=== PATIENT | female | born 1965 ===

== ENCOUNTER 2017-01-11 16:41 | Emergency (ER) | payer MEDICAID ==
[2017-01-11 16:41] VITALS: BMI 25.6
[2017-01-11 16:47] VITALS: RESP 18
--- NOTE | 2017-01-11 17:39 | C.PDOC ---
History Of Present Illness 51 year old female presents to the ED with complaints of vaginal bleeding for ten days and mild abdominal discomfort. Patient states she has been going through two pads per day. She notes she stopped having her period, her last period was April 2016. Patient denies fever, dysuria, nausea, vomiting, chest pain, or shortness of breath. Time Seen by Provider: 01/11/17 16:58 Chief Complaint (Nursing): Female Genitourinary History Per: Patient History/Exam Limitations: no limitations Onset/Duration Of Symptoms: Days (10 days ) Current Symptoms Are (Timing): Still Present Quality Of Discomfort: Other (a) Associated Symptoms: denies: Fever, Chills, Nausea, Vomiting, Diarrhea Recent travel outside of the [place]: No Abnormal Vaginal Bleeding: Yes Last Menstral Period: April 2016 Past Medical History Reviewed: Historical Data, Nursing Documentation, Vital Signs Vital Signs: Last Vital Signs Temp 97.9 F 01/11/17 16:44 Pulse 60 01/11/17 16:44 Resp 18 01/11/17 16:44 BP 108/65 01/11/17 16:44 Pulse Ox 97 01/11/17 18:13 - Medical History PMH: Denies: Chronic Kidney Disease Family History: States: Other Other Family History: Non-contributory. - Social History Hx Alcohol Use: No Hx Substance Use: No - Immunization History Hx Tetanus Toxoid Vaccination: Yes Hx Influenza Vaccination: No Hx Pneumococcal Vaccination: No Review Of Systems Constitutional: Negative for: Fever, Chills Cardiovascular: Negative for: Chest Pain Respiratory: Negative for: Shortness of Breath Gastrointestinal: Negative for: Nausea, Vomiting, Abdominal Pain, Diarrhea Genitourinary: Positive for: Vaginal Bleeding Physical Exam - Physical Exam Appears: Non-toxic, No Acute Distress Skin: Warm, Dry Head: Atraumatic Eye(s): bilateral: Normal Inspection Oral Mucosa: Moist Neck: Supple Chest: Symmetrical Cardiovascular: Rhythm Regular Respiratory: Normal Breath Sounds, No Rales, No Rhonchi, No Wheezing Gastrointestinal/Abdominal: Soft, Tenderness (lower abdominal tenderness ), No Distention, No Guarding, No Rebound Pelvic: Vaginal Bleeding (No blood noted ), Other (Cervix appears normal ) Extremity: Normal ROM, No Tenderness Neurological/Psych: Oriented x3, Normal Speech, Normal Cognition, Normal Motor, Normal Sensation ED Course And Treatment - Laboratory Results Result Diagrams: 01/11/17 17:39 01/11/17 17:39 O2 Sat by Pulse Oximetry: 97 (room air ) - CT Scan/US US Pelvis Complete, Transabdominal Other Rad Studies (CT/US): Read By Radiologist, Radiology Report Reviewed CT/US Interpretation: FINDINGS: Uterus/cervix: Retroverted uterus. Uterus measures 7.7 x 3.9 x 5.3 cm in size. No myometrial. mass. Endometrium: 0.8 cm in thickness. Right ovary: 4.2 x 2.5 x 3.2 cm in size. 2.8 x 2.1 x 1.9 cm anechoic lesion. Normal flow. Left ovary: 2.8 x 1.4 x 2.6 cm in size. No mass. Normal flow. Free fluid: No significant free fluid. Bladder: Unremarkable as visualized. IMPRESSION: 1. Thickened endometrium, abnormal in postmenopausal patient. Endometrial carcinoma is. diagnosis of exclusion. Clinical correlation and follow up are recommended. 2. Probable RIGHT ovarian cyst. Progress Note: UA, transvaginal US, and blood work were ordered. 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 Disposition - Disposition Disposition: HOME/ ROUTINE Disposition Time: 18:26 Condition: STABLE Forms: [facility] (German) - Clinical Impression Clinical Impression: Post-menopausal bleeding - Scribe Statement The provider has reviewed the documentation as recorded by the Scribpaul Krueger All medical record entries made by the Scribe were at my direction and personally dictated by me. I have reviewed the chart and agree that the record accurately reflects my personal performance of the history, physical exam, medical decision making, and the department course for this patient. I have also personally directed, reviewed, and agree with the discharge instructions and disposition.
[2017-01-11 17:47] LABS: BASO % 0.3 % (0.0-2.0); EOS # 0.1 K/uL (0.0-0.7); EOS % 2.4 % (0.0-4.0); HEMATOCRIT 34.2 % (34.0-47.0); LYMPH # 1.1 K/uL (1.0-4.3); LYMPH % 25.8 % (20.0-40.0); MEAN CELL VOLUME 92.8 fL (81.0-99.0); MEAN CORPUSCULAR HEMOGLOBIN 31.3 pg (27.0-31.0); MEAN CORPUSCULAR HGB CONC 33.7 g/dL (33.0-37.0); MEAN PLATELET VOLUME 8.7 fL (7.2-11.7); MONO # 0.4 K/uL (0.0-0.8); MONO % 9.5 % (0.0-10.0); NRBC % 0.1 % (0.0-2.0); RED CELL DISTRIBUTION WIDTH 13.4 % (11.5-14.5); WHITE BLOOD COUNT 4.2 K/uL (4.8-10.8)
[2017-01-11 17:52] LABS: CHLORIDE 107 mmol/L (98-107)
[2017-01-11 17:53] LABS: POTASSIUM 4.3 mmol/L (3.6-5.2); SODIUM 146 mmol/L (132-148)
[2017-01-11 17:55] LABS: ALB/GLOB RATIO 1.7 (1.0-2.1); ALKALINE PHOSPHATASE 71 U/L (38-126); AST/SGOT 16 U/L (14-36); BILIRUBIN,TOTAL 0.5 mg/dL (0.2-1.3); BLOOD UREA NITROGEN 15 mg/dL (7-17); CARBON DIOXIDE 24 mmol/L (22-30); GFR AFRICAN-AMERICAN > 60; TOTAL PROTEIN 6.5 g/dL (6.3-8.3)
[2017-01-11 17:56] LABS: ALT/SGPT 24 U/L (9-52); CALCIUM 8.2 mg/dl (8.6-10.4); GLUCOSE,RANDOM 98 mg/dL (65-105)
[2017-01-11 17:59] LABS: RBC URINE 71 /hpf (0-3); URINE BACTERIA RARE (<OCC); URINE BILIRUBIN NEGATIVE (NEGATIVE); URINE BLOOD 3+ (NEGATIVE); URINE COLOR Yellow (YELLOW); URINE GLUCOSE (UA) NORMAL (Normal); URINE KETONE TRACE mg/dL (NEGATIVE); URINE LEUKOCYTE ESTERASE NEG Leu/uL (Negative); URINE PROTEIN NEGATIVE (NEGATIVE); URINE UROBILINOGEN NORMAL mg/dL (0.2-1.0); WBC URINE 3 /hpf (0-5)
--- NOTE | 2017-01-11 18:05 | US ---
EXAM: US Pelvis Complete, Transabdominal CLINICAL HISTORY: 51 years old, female; Signs and symptoms; Menstruation abnormalities; Postmenopausal bleeding TECHNIQUE: Real-time transabdominal pelvic ultrasound (complete) with image documentation. COMPARISON: No relevant prior studies available. FINDINGS: Uterus/cervix: Retroverted uterus. Uterus measures 7.7 x 3.9 x 5.3 cm in size. No myometrial mass. Endometrium: 0.8 cm in thickness. Right ovary: 4.2 x 2.5 x 3.2 cm in size. 2.8 x 2.1 x 1.9 cm anechoic lesion. Normal flow. Left ovary: 2.8 x 1.4 x 2.6 cm in size. No mass. Normal flow. Free fluid: No significant free fluid. Bladder: Unremarkable as visualized. IMPRESSION: 1. Thickened endometrium, abnormal in postmenopausal patient. Endometrial carcinoma is diagnosis of exclusion. Clinical correlation and follow up are recommended. 2. Probable RIGHT ovarian cyst. EXAM: US Pelvis, Transvaginal CLINICAL HISTORY: 51 years old, female; Signs and symptoms; Menstruation abnormalities; Postmenopausal bleeding TECHNIQUE: Real-time transvaginal pelvic ultrasound (complete) with image documentation. Transvaginal imaging was used for better evaluation of the endometrium and adnexa. COMPARISON: No relevant prior studies available. FINDINGS: Uterus/cervix: Retroverted uterus. Uterus measures 7.7 x 3.9 x 5.3 cm in size. No myometrial mass. Endometrium: 0.8 cm in thickness. Right ovary: 4.2 x 2.5 x 3.2 cm in size. 2.8 x 2.1 x 1.9 cm anechoic lesion. Normal flow. Left ovary: 2.8 x 1.4 x 2.6 cm in size. No mass. Normal flow. Free fluid: No significant free fluid. Bladder: Empty bladder which cannot be evaluated with this probe.
[2017-01-11 18:45] VITALS: BP 130/80; PULSE 54; TEMP 98.2; O2SAT 96
== END 2017-01-11 18:45 | disposition home or self-care (01) ==
LOC: C.ER 16:41
DX: N95.0 Postmenopausal bleeding (principal)

== ENCOUNTER 2017-02-26 07:09 | Day surgery (SDC) | payer MEDICAID ==
[2017-02-26] MEDS ORDERED: Lactated Ringer's 1,000 ML IV ONE ×2 (08:21)
[2017-02-26] MEDS ORDERED: Propofol 10 mg/ml Inj (20 ML) ONE (09:21)
[2017-02-26] MEDS ORDERED: Midazolam 2 MG/2 ML VIAL ONE (09:21)
[2017-02-26] MEDS ORDERED: cefOXitin IV 1 gm in Dextrose 1 GM/50 ML BAG IVPB ONE (09:38)
[2017-02-26] MEDS ORDERED: HYDROmorphone 0.5 mg/0.5 ml ISec IVP PRN (10:28)
[2017-02-26 11:54] VITALS: PULSE 54; RESP 16; TEMP 98; O2SAT 100
[2017-02-26 12:22] VITALS: BP 124/59
--- NOTE | 2017-02-26 12:38 | PCM.SURG1 ---
Surgeon's Initial Post Op Note - Surgeon's Notes Surgeon: Dr Bryan Behavioral Specialist: Renetta Brumfield Type of Anesthesia: General Endo Anesthesia Administered By: KERRI Mcmahon, supervised by Dr Ball Pre-Operative Diagnosis: Perimenopausal bleeding with Endometrial Polyp Operative Findings: Normal sized retroverted uterus, sounded to a deapth of 7cm. Atrophic endometrial cavity at hysteroscopy. No polyps identified. Endometrial and endocervical curretage performed and samples sent for histopathology. IVF Intake- 300mls. EBL - 20mls. Urine output- 50mls Post-Operative Diagnosis: Same as Preop Operation Performed: D and C Hysteroscopy Specimen/Specimens Removed: Endometrial and endocervical curretings. Estimated Blood Loss: EBL {In ML}: 20 Blood Products Given: N/A Post-Op Condition: Good Date of Surgery/Procedure: 02/26/17 Time of Surgery/Procedure: 09:35
--- NOTE | 2017-02-26 19:25 | OP ---
PROCEDURE DATE: 02/26/2017 PREOPERATIVE DIAGNOSES: A 51-year-old female with perimenopausal bleeding and endometrial polyp. POSTOPERATIVE DIAGNOSES: A 51-year-old female with perimenopausal bleeding and endometrial polyp. PROCEDURE DONE: Dilatation and curettage, hysteroscopy performed on 02/26/2017. SURGEON: Otis Bryan MD SENIOR UI WEB DEVELOPER: Laura Brumfield, family practice resident. TYPE OF ANESTHESIA: General endotracheal. ANESTHESIA ADMINISTERED BY: China Berger CRNA, supervised by Dr. Ball. OPERATIVE FINDINGS: Normal-sized retroverted uterus which was sounded to a depth of about 7 cm. There were atrophic endometrial tissue observed at hysteroscope. There were no polyps identified in the intrauterine cavity. Endometrial and endocervical curettage was performed and sample sent for histopathology. IV FLUID INTAKE: 300 mL. ESTIMATED BLOOD LOSS: 20 mL. URINE OUTPUT: 50 mL. COMPLICATIONS: There were no complications. DESCRIPTION OF PROCEDURE: After obtaining informed consent, the patient was sent to the OR with IV running and placed in the supine position on the OR table. After adequate general anesthesia, the patient was repositioned in dorsal lithotomy position using Fahad stirrups. The patient was prepped and draped in the usual sterile fashion. The urinary bladder was drained with a straight cath with output of about 50 mL of clear urine. Posterior wall of the vagina was depressed with a weighted speculum and the anterior wall elevated with an L-shaped retractor to expose the cervix. The anterior lip of the cervix was held with a single-tooth tenaculum and then brought forward into the operative field. The uterus was at this point sounded to a depth of about 7 cm. The cervical canal dilated with Hegar's dilator to about 8 mm dilatation. The hysteroscope was introduced into the intrauterine cavity and the above findings noted. Pictures were obtained and once the hysteroscopy had been completed, the hysteroscope was withdrawn and sharp curettage of the endometrial as well as endocervical cavities were performed. Tissue obtained in these areas were sent for histopathology. Once the procedure had been completed, all instruments were taken out of the vagina after assuring hemostasis. The patient was replaced in the supine position and was sent to the PACU in stable condition. All counts of instruments and gauze used were correct x3. The patient remained stable throughout the procedure. Otis Bryan MD [facility] # [id number]
== END 2017-02-26 12:18 | disposition home or self-care (01) ==
LOC: C.SDS 07:09
PROVIDERS: ATTEND Obstetrics & Gynecology
DX: N95.0 Postmenopausal bleeding (principal); R93.8 Abnormal findings on diagnostic imaging of other specified body structures
CPT/HCPCS: 58558; 88305; J0694; J1100; J1885; J2250; J2405; J2704; J3010; J7120

== ENCOUNTER 2017-12-07 17:53 | Emergency (ER) | payer MEDICAID ==
[2017-12-07 17:53] VITALS: BMI 25.6
[2017-12-07 18:12] VITALS: BP 107/68; PULSE 49; RESP 18; TEMP 98.2; O2SAT 100
--- NOTE | 2017-12-07 18:45 | C.PDOC ---
History Of Present Illness 51 y/o female comes in for evaluation of left lateral chest wall pain, gradually developing for the past 3 days after mechanical fall at home. Patient reports she tripped at home and landed on her left side. Pain is localized over the left lateral ribs, worsens with movement, and is reproducible. Otherwise patient denies any dyspnea, dizziness, palpitations, nausea, vomiting, diaphoresis, head injury, LOC, or other injury. Time Seen by Provider: 12/07/17 18:15 Chief Complaint (Nursing): Back Pain History Per: Patient History/Exam Limitations: no limitations Onset/Duration Of Symptoms: Days Current Symptoms Are (Timing): Still Present Past Medical History Reviewed: Historical Data, Nursing Documentation, Vital Signs Vital Signs: Last Vital Signs Temp 98.2 F 12/07/17 18:11 Pulse 49 L 12/07/17 18:11 Resp 18 12/07/17 18:11 BP 107/68 12/07/17 18:11 Pulse Ox 100 12/07/17 19:12 - Medical History PMH: Colonic Polyps Denies: Chronic Kidney Disease Family History: States: Unknown Family Hx - Social History Hx Alcohol Use: No Hx Substance Use: No - Immunization History Hx Tetanus Toxoid Vaccination: Yes Hx Influenza Vaccination: No Hx Pneumococcal Vaccination: No Review Of Systems Constitutional: Negative for: Fever, Sweats Cardiovascular: Positive for: Chest Pain (left rib pain). Negative for: Palpitations Respiratory: Negative for: Cough, Shortness of Breath Gastrointestinal: Negative for: Nausea, Vomiting Musculoskeletal: Negative for: Arm Pain, Back Pain Neurological: Negative for: Weakness, Numbness, Headache, Dizziness Physical Exam - Physical Exam Appears: Well, Non-toxic, No Acute Distress Skin: Normal Color, Warm, No Rash, No Ecchymosis Head: Atraumatic, Normacephalic Eye(s): bilateral: PERRL Nose: No Flaring, No Discharge Oral Mucosa: Moist, No Drooling, No Trismus Tongue: Normal Appearing Lips: Normal Appearing Neck: Trachea Midline, No Midline Cervical Tenderness, No Paracervical Tenderness, No Step Off Deformity, Supple Chest: Symmetrical, Tenderness (over left lateral ribs overlying ribs 3-5 intracostal), No Ecchymosis, No Subcutaneous Emphysema, No Other Cardiovascular: Rhythm Regular, No Murmur, No JVD Respiratory: No Decreased Breath Sounds, No Accessory Muscle Use, No Rales, No Rhonchi, No Stridor, No Wheezing Gastrointestinal/Abdominal: Soft, No Tenderness Back: No CVA Tenderness, No Vertebral Tenderness Extremity: Normal ROM, No Tenderness, No Pedal Edema, No Calf Tenderness, No Deformity, No Swelling Pulses: Left Radial: Normal, Right Radial: Normal Neurological/Psych: Oriented x3, Normal Speech Gait: Steady ED Course And Treatment O2 Sat by Pulse Oximetry: 100 (RA) Pulse Ox Interpretation: Normal - Other Rad Ribs, left with chets X-Ray: Interpreted by Me, Viewed By Me Interpretation: (-) acute fx Progress Note: X-ray taken of right ribs/chest. Patient given 50 mg PO Tramadol for pain control. On re-evaluation, pt is afebnrile, hemodynamical stable. Non -toxic. Ambulatory in ED with stable gait. PulseOx 100% rA. Head: AT/NC. Neck: Supple, (-) midline tenderness. Lungs: CTA B/L, BS equal B/L. CVS: (+) S1S2, reg. Abd: benign. Neuorlogicaly intact. Imaging of left ribs with CXR review and appear snormal. Pt has clinical findings c/w left sided lateral ribcage contusion s/p mechanical fall. Pt advised. Ref. to f/u with PMD in 2 - 3 days for re-eavl. return if any new changes Disposition Counseled Patient/Family Regarding: Studies Performed, Diagnosis, Need For Followup, Rx Given - Disposition Referrals: Shaik Dubon MD [Staff Provider] - Disposition: HOME/ ROUTINE Disposition Time: 19:01 Condition: STABLE Additional Instructions: Light duty, avoid physical activity for 1 week take pain medication as prescribed Follow up with PMD in 2-3 days for re-evaluation. return if any new changes. Prescriptions: Ibuprofen [Motrin Tab] 600 mg PO TID #20 tab traMADol [Ultram] 50 mg PO TID #7 tab Instructions: Bruised Rib (DC) Forms: [facility] (Telugu) Print Language: KYRGYZ - Clinical Impression Clinical Impression: Contusion of rib on left side - PA / CLAIM EXAMINER / Resident Statement MD/DO has reviewed & agrees with the documentation as recorded. - Scribe Statement The provider has reviewed the documentation as recorded by the Scribe (Lisa Chan) All medical record entries made by the Scribe were at my direction and personally dictated by me. I have reviewed the chart and agree that the record accurately reflects my personal performance of the history, physical exam, medical decision making, and the department course for this patient. I have also personally directed, reviewed, and agree with the discharge instructions and disposition.
--- NOTE | 2017-12-08 09:49 | RAD ---
Date of service: 12/07/2017 PROCEDURE: Radiographs of the Chest and Left Ribs. HISTORY: injury COMPARISON: None available. TECHNIQUE: Frontal radiograph of the chest and multiple oblique radiographs of the left ribs were obtained. FINDINGS: LEFT RIBS: No fracture or focal lesion visualized. LUNGS: Clear. PLEURA: No pneumothorax or pleural fluid. CARDIOVASCULAR: Normal sized heart. No pulmonary vascular congestion. OTHER FINDINGS: None. IMPRESSION: Unremarkable radiographs of the chest and left ribs. No left rib fracture.
== END 2017-12-07 19:15 | disposition home or self-care (01) ==
LOC: C.ER 17:53
DX: S20.212A Contusion of left front wall of thorax, initial encounter (principal); W01.0XXA Fall on same level from slipping, tripping and stumbling without subsequent striking against object, initial encounter; Y92.009 Unspecified place in unspecified non-institutional (private) residence as the place of occurrence of the external cause

== ENCOUNTER 2018-06-15 13:10 | Emergency (ER) | payer MEDICAID ==
[2018-06-15 13:10] VITALS: BMI 25.6
--- NOTE | 2018-06-15 13:37 | C.PDOC ---
History Of Present Illness 52 y/o female with no PMHx presents to the ED with complaints of left foot pain since this morning. States she was walking and had sudden onset of sharp pain to the planter surface of foot, lateral aspect. Patient is worried she may have stepped on something, though cannot recall any specific trauma or injury. Patient cannot recall last Tetanus. No associated numbness, weakness, or paresthesias. Pain worsens on ambulation. Time Seen by Provider: 06/15/18 13:26 Chief Complaint (Nursing): Lower Extremity Problem/Injury History Per: Patient History/Exam Limitations: no limitations Onset/Duration Of Symptoms: Hrs Current Symptoms Are (Timing): Still Present Past Medical History Reviewed: Historical Data, Nursing Documentation, Vital Signs Vital Signs: Last Vital Signs Temp 97.7 F 06/15/18 13:16 Pulse 76 06/15/18 13:16 Resp 18 06/15/18 13:16 BP 110/64 06/15/18 13:16 Pulse Ox 97 06/15/18 13:16 - Medical History PMH: Colonic Polyps Denies: Chronic Kidney Disease Family History: States: Unknown Family Hx - Social History Hx Alcohol Use: No Hx Substance Use: No - Immunization History Hx Tetanus Toxoid Vaccination: Yes Hx Influenza Vaccination: No Hx Pneumococcal Vaccination: No Review Of Systems Constitutional: Negative for: Fever Cardiovascular: Negative for: Chest Pain Respiratory: Negative for: Shortness of Breath Musculoskeletal: Positive for: Foot Pain (left plantar lateral foot). Negative for: Leg Pain Skin: Negative for: Rash, Bruising Neurological: Negative for: Weakness, Numbness, Incoordination Physical Exam - Physical Exam Appears: Non-toxic, No Acute Distress Skin: Warm, Dry Head: Atraumatic, Normacephalic Eye(s): bilateral: Normal Inspection Neck: Normal ROM, Supple Chest: Symmetrical Cardiovascular: Rhythm Regular Respiratory: Normal Breath Sounds, No Accessory Muscle Use, Other (Normal inspiratory effort) Extremity: Tenderness (mild tenderness to plantar surface near 4th and 5th MTP joints of left foot), Capillary Refill (< 2 sec), No Deformity, Swelling (mild swelling over the lateral aspect, plantar surface of left foot, near 4th and 5th MTP joints), Other (1mm break in the skin at the site of pain, no FB visualized) Pulses: Left Dorsalis Pedis: Normal, Right Dorsalis Pedis: Normal Neurological/Psych: Oriented x3 ED Course And Treatment O2 Sat by Pulse Oximetry: 97 (RA) Pulse Ox Interpretation: Normal Medical Decision Making Medical Decision Making: Plan: - Left foot x-ray - 500 mg PO Cipro - 975 mg PO Tylenol - Tetanus booster given X-ray is negative, patient informed of results. Podiatry resident (here in the ED for another case), viewed imaging and agrees there is no foreign body or other acute abnormality. Plan is to discharge patient home with rx for Cipro and Naproxen prn for pain. Advised patient to follow up with the podiatry clinic next Wednesday. Diagnostic testing results and plan of care discussed with patient. Strict instructions given regarding prescription use, importance of followup, and signs/symptoms to return to ER including worsening pain, numbness, paresthesias, or any other new/worsening symptoms. Pt verbalized understanding of discussion. Patient is A&Ox3, ambulating with steady gait, with vital signs stable for discharge. Disposition - Disposition Referrals: [facility] [Outside] Podiatry Clinic [Outside] Disposition: HOME/ ROUTINE Disposition Time: 16:00 Condition: IMPROVED Additional Instructions: [place] antibiticos cada 12 horas peggy 7 haile. Moshe naproxeno diariamente con alimentos segn sea necesario para el dolor. Mantener el pie limpio Seguimiento con clnica de podologa en 2 haile. Seguimiento con mdico primario en 2 haile. 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 - Scribe Statement The provider has reviewed the documentation as recorded by the Franciscoibpaul Chan All medical record entries made by the Franciscoibpaul were at my direction and personally dictated by me. I have reviewed the chart and agree that the record accurately reflects my personal performance of the history, physical exam, medical decision making, and the department course for this patient. I have also personally directed, reviewed, and agree with the discharge instructions and disposition.
--- NOTE | 2018-06-15 15:01 | RAD ---
PROCEDURE: Left Foot Radiographs. HISTORY: r/o fracture, FB COMPARISON: None available. FINDINGS: BONES: Osseous demineralization. Degenerative changes. No acute displaced fracture. JOINTS: No dislocation. SOFT TISSUES: Soft tissue swelling. No evidence of radiopaque foreign body. OTHER FINDINGS: None. IMPRESSION: Soft tissue swelling. No acute displaced fracture, dislocation, or significant joint effusion identified. If symptoms persist, or if there is continued clinical concern, x-ray follow-up in 7-10 days should be considered.
[2018-06-15] MEDS ORDERED: Tdap Vaccine 0.5 ml Vial (10-64 yrs) IM ONE ×2 (15:08→15:59)
[2018-06-15 15:22] VITALS: BP 101/59; PULSE 52; RESP 16; TEMP 98.6
[2018-06-15 15:36] VITALS: O2SAT 97
== END 2018-06-15 16:07 | disposition home or self-care (01) ==
LOC: C.ER 13:10
DX: S91.332A Puncture wound without foreign body, left foot, initial encounter (principal); X58.XXXA Exposure to other specified factors, initial encounter; Y93.01 Activity, walking, marching and hiking; M79.672 Pain in left foot; Z23 Encounter for immunization